=== PATIENT | female | born 1995 | race Two or more races ===

== ENCOUNTER 2018-05-05 18:28 | Emergency (ER) | payer MEDICAID ==
[~2018-05-05] VITALS: Ht 160 cm; Wt 72.6 kg
[2018-05-05] MEDS ORDERED: SULF1TAB48 PO (18:46)
--- NOTE | 2018-05-05 18:55 | NUR ---
PT IS IN ROOM 2A. DR ROMAN EVALUATED THE PT.
--- NOTE | 2018-05-05 19:28 | NUR ---
RECEIVED SHIFT REPORT FROM SHAKIRA MOE.
[2018-05-05] MEDS ORDERED: NEOMY/BACITRA/POLYMYXIN B OINT UD PACKET TP ONE ×2 (19:35→19:45)
--- NOTE | 2018-05-05 19:40 | NUR ---
Patient discharged to home in stable conditon. Written and verbal after care instructions given. Patient verbalizes understanding of instructions. ALL BELONGIGNS W/ PT. PT SELF-AMBULATED W/O DIFFICULTY.
[2018-05-05 19:41] VITALS: BP 140/74
== END 2018-05-05 19:41 | disposition home or self-care (01) ==
LOC: ER 18:28
DX: L02.413 Cutaneous abscess of right upper limb (principal); Z48.01 Encounter for change or removal of surgical wound dressing; J45.909 Unspecified asthma, uncomplicated; F17.200 Nicotine dependence, unspecified, uncomplicated
CPT/HCPCS: A4663

== ENCOUNTER 2018-07-01 18:54 | Emergency (ER) | payer MEDICAID ==
[~2018-07-01] VITALS: Ht 160 cm; Wt 72.6 kg
[~2018-07-01 18:54] MED LIST: SULF1TAB48 PO
[2018-07-01] MEDS ORDERED: SULFAMETH/TRIMETH 800/160 MG TABLET PO ONE (19:30)
[2018-07-01] MEDS ORDERED: CEFTRIAXONE 1 G VIAL IM ONE (19:30)
[2018-07-01] MEDS ORDERED: SULFAMETH/TRIMETH 800/160 MG TABLET ONE (19:41)
[2018-07-01] MEDS ORDERED: CEFTRIAXONE 1 G VIAL ONE (19:41)
--- NOTE | 2018-07-01 20:09 | NUR ---
Javier. 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 1 month ago for the bite, Addendum: 07/01/18 at 2012 by SIERRA abscess is on Jennifer SAHNI
== END 2018-07-01 20:13 | disposition home or self-care (01) ==
LOC: ER 18:54
DX: L03.113 Cellulitis of right upper limb (principal); Z71.6 Tobacco abuse counseling; J45.909 Unspecified asthma, uncomplicated; F17.290 Nicotine dependence, other tobacco product, uncomplicated; Z79.899 Other long term (current) drug therapy
CPT/HCPCS: 96372; 99283; 99406; J0696; A4663

== ENCOUNTER 2018-10-20 16:39 | Emergency (ER) | payer MEDICAID ==
[~2018-10-20] VITALS: Ht 160 cm; Wt 72.6 kg
[2018-10-20] MEDS ORDERED: ONDANSETRON ODT 4 MG TAB.RAPDIS SL ONE (17:00)
[2018-10-20] MEDS ORDERED: ACETAMINOPHEN 325 MG TABLET PO ONE (17:00)
[2018-10-20 17:08] LABS: BASOPHILS # (AUTO) 0.1 K/uL (0.0-8.0); BASOPHILS % (AUTO) 1.1 % (0.0-2.0); EOSINOPHILS # (AUTO) 0.8 K/uL (0.0-0.7); EOSINOPHILS % (AUTO) 8.6 % (0.0-7.0); HEMATOCRIT 41.6 % (31.2-41.9); HEMOGLOBIN 13.7 g/dL (10.9-14.3); LYMPHOCYTES # (AUTO) 1.6 K/uL (20.0-40.0); LYMPHOCYTES % (AUTO) 17.9 % (20.5-51.5); MEAN CORPUSCULAR HGB CONC 33 g/dL (32.3-35.6); MONOCYTES # (AUTO) 0.7 K/uL (2.0-10.0); MONOCYTES % (AUTO) 7.9 % (0.0-11.0); NEUTROPHILS # (AUTO) 5.7 K/uL (1.8-8.9); NEUTROPHILS % (AUTO) 64.5 % (38.5-71.5); PLATELET COUNT (AUTO) 341 K/uL (179-408); RED BLOOD CELL COUNT(AUTO) 4.89 MIL/uL (3.63-4.92); WHITE BLOOD COUNT (AUTO) 8.8 K/uL (3.8-11.8)
[2018-10-20] MEDS ORDERED: ONDANSETRON ODT 4 MG TAB.RAPDIS ONE (17:10)
[2018-10-20] MEDS ORDERED: ACETAMINOPHEN 325 MG TABLET ONE (17:10)
[2018-10-20 17:21] LABS: ALANINE AMINOTRANSFERASE 23 U/L (14-59); ALKALINE PHOSPHATASE 56 U/L (50-136); ASPARTATE AMINOTRANSFERASE 12 U/L (15-37); BILIRUBIN,DIRECT 0.1 mg/dL (0.0-0.2); BILIRUBIN,TOTAL 0.2 mg/dL (0.2-1.0); CARBON DIOXIDE 28 mmol/L (21-32); CHLORIDE 101 mmol/L (98-107); CREATININE 0.9 mg/dL (0.6-1.3); GLUCOSE 97 mg/dL (74-106); LIPASE 116 U/L (73-393); POTASSIUM 4.1 mmol/L (3.5-5.1); TOTAL PROTEIN, SERUM 7.8 g/dL (6.4-8.2); UREA NITROGEN, BLOOD 14 mg/dL (7-18)
--- NOTE | 2018-10-20 17:43 | NUR ---
Patient discharged to home in stable conditon. Written and verbal after care instructions given to patient. Patient verbalizes understanding of instructions.
== END 2018-10-20 17:44 | disposition home or self-care (01) ==
LOC: ER 16:39
DX: R19.7 Diarrhea, unspecified (principal); R11.2 Nausea with vomiting, unspecified; J45.909 Unspecified asthma, uncomplicated; F17.200 Nicotine dependence, unspecified, uncomplicated; Z79.899 Other long term (current) drug therapy
CPT/HCPCS: 36415; 83690; 85025; 86625; 87046; 87177; 89055; A4663; Q0162

== ENCOUNTER 2019-09-30 17:25 | Emergency (ER) | payer MEDICAID ==
[~2019-09-30] VITALS: Ht 160 cm; Wt 67.1 kg
--- NOTE | 2019-09-30 18:00 | NUR ---
PATIENT WAS MSE BY DR SIDHU IN ROOM 04B. PATIENT A & O X3.
--- NOTE | 2019-09-30 18:11 | NUR ---
Patient discharged to home in stable condition. Written and verbal after care instructions given. Patient verbalizes understanding of instructions. Stressed follow up or return to ER for worsening s/s.
[2019-09-30 18:13] VITALS: BP 129/86
== END 2019-09-30 18:17 | disposition home or self-care (01) ==
LOC: ER 17:25
DX: L03.011 Cellulitis of right finger (principal); J45.909 Unspecified asthma, uncomplicated
CPT/HCPCS: A4663

== ENCOUNTER 2019-10-03 11:20 | Emergency (ER) | payer MEDICAID ==
[~2019-10-03] VITALS: Ht 160 cm; Wt 67.1 kg
--- NOTE | 2019-10-03 11:26 | NUR ---
Dr Avendano at the bedside for MSE.
[2019-10-03] MEDS ORDERED: LIDOCAINE HCL 2% 20 ML VIAL TP ONE (11:45)
[2019-10-03 11:53] VITALS: BP 125/77
== END 2019-10-03 12:17 | disposition home or self-care (01) ==
LOC: ER 11:20
PROC: 0H9FXZZ Drainage of Right Hand Skin, External Approach (ICD-10-PCS; principal; 2019-10-03)
DX: L02.511 Cutaneous abscess of right hand (principal); J45.909 Unspecified asthma, uncomplicated
CPT/HCPCS: A4663

== ENCOUNTER 2019-10-05 13:22 | Emergency (ER) | payer MEDICAID ==
[~2019-10-05] VITALS: Ht 165.1 cm; Wt 63.5 kg
--- NOTE | 2019-10-05 13:48 | NUR ---
I&D PROCEDURE WAS PERFORMED BY DR RICO. DGAUZE DRESSING WAS APPLIED TO PT's RIGHT HAND BY DR RICO. PT TOLERATED TO PROCEDURE WITHOUT COMPLICATIONS.
--- NOTE | 2019-10-05 14:01 | NUR ---
PT WAS EVALUATED BY DR RICO. PT WAS D/C'd TO HOME. D/C INSTRUCTIONS GIVEN TO THE PT.
[2019-10-05 14:07] VITALS: BP 132/69
== END 2019-10-05 14:13 | disposition home or self-care (01) ==
LOC: ER 13:22
DX: Z48.01 Encounter for change or removal of surgical wound dressing (principal); L02.511 Cutaneous abscess of right hand
CPT/HCPCS: A4663

== ENCOUNTER 2019-12-25 16:08 | Emergency (ER) | payer MEDICAID ==
[~2019-12-25] VITALS: Ht 165.1 cm; Wt 63.5 kg
--- NOTE | 2019-12-25 17:33 | NUR ---
PT IS IN ROOM #1A. DR SIDHU EVALUATED THE PT.
--- NOTE | 2019-12-25 18:27 | NUR ---
PT WAS D/C'd TO HOME. AFTER DR SIDHU RE-EVALUATION. D/C INSTRUCTIONS GIVEN TO THE PT.
[2019-12-25 18:29] VITALS: BP 121/74
== END 2019-12-25 18:31 | disposition home or self-care (01) ==
LOC: ER 16:16
DX: S42.401D Unspecified fracture of lower end of right humerus, subsequent encounter for fracture with routine healing (principal); X58.XXXD Exposure to other specified factors, subsequent encounter; J45.909 Unspecified asthma, uncomplicated
CPT/HCPCS: 73080; A4663